=== PATIENT | male | born 1950 | race Caucasian/White ===

== ENCOUNTER 2024-03-12 16:00 | Emergency (ER) | payer BC, MEDICARE ==
[2024-03-12 16:25] LABS: BASOPHILS PERCENT AUTO 0.2 % (0.0-1.0); EOSINOPHILS PERCENT AUTO 0.1 % (1.0-3.0); HEMATOCRIT 45.3 % (40.0-54.0); HEMOGLOBIN 14.5 g/dL (14.0-18.0); LYMPHOCYTES PERCENT AUTO 4.3 % (20.5-50.1); MEAN CORPUSCULAR VOLUME 96.8 fL (80-100); MONOCYTES PERCENT AUTO 9.5 % (2-8); NEUTROPHILS PERCENT AUTO 85.9 % (42.2-75.2); PLATELET COUNT,PLT 185 10^3/uL (150-450); RED BLOOD CELL COUNT 4.68 10^6/uL (4.6-6.2); WHITE BLOOD CELL COUNT,WBC 12.1 10^3/uL (5.0-10.0)
[2024-03-12] MEDS: Albuterol/Ipratropium 3.0-0.5 MG/3 ML Neb Soln NEB ONE (16:31)
[2024-03-12] MEDS: Aspirin 81 MG Tab.Chew PO ONE (16:31)
[2024-03-12] MEDS: predniSONE 20 MG Tab PO ONE (16:42)
[2024-03-12] MEDS: Sodium Chloride 0.9% 10 ML Syringe FLUSH PRN (16:43)
[2024-03-12 16:47] LABS: A/G RATIO 1.1; ALANINE AMINOTRANSFERASE,ALT 114 U/L (16-63); ALBUMIN 3.7 g/dL (3.4-5.0); ALKALINE PHOSPHATASE 73 U/L (46-116); ANION GAP 12.1 mEq/L (7-13); ASPARTATE AMNIOTRANSFERASE,AST 530 U/L (15-37); BILIRUBIN TOTAL 0.9 mg/dL (0.2-1.0); BLOOD UREA NITROGEN,BUN 27 mg/dL (7-18); CALCIUM 11.2 mg/dL (8.5-10.1); CARBON DIOXIDE,CO2 30 mmol/L (21-32); CHLORIDE,CL 100 mmol/L (98-107); GLUCOSE RANDOM 147 mg/dL (70-99); POTASSIUM,K 5.1 mmol/L (3.5-5.1); PROTEIN TOTAL,TP 7.1 g/dL (6.4-8.2); SODIUM,NA 137 mmol/L (136-145)
[2024-03-12 16:48] LABS: B-TYPE NATRIURETIC PEPTIDE,BNP 1320 pg/ml (0-100)
[2024-03-12 17:04] LABS: EST CRCL DRUG DOSING (CG) 42.31 mL/min; ESTIMATED GFR 49 mL/min (>=60)
[2024-03-12] MEDS: Heparin Sodium 5,000 Units/ML Vial IVPUSH ONE (17:25)
[2024-03-12 17:27] LABS: INR 1.1 (0.9-1.2); PROTHROMBIN TIME 11.1 SEC (9.0-12.0); PTT,PARTIAL THROMBOPLSTIN TIME 34.8 SEC (22.0-34.0)
[2024-03-12] MEDS: Iopamidol 755 Mg/ML 100 ML Bottle IVPUSH ONE (17:27)
[2024-03-12] MEDS: Heparin Sodium/0.45% NaCl 25,000 UNITS/500 ML BAG IV SCH (17:28)
== END 2024-03-12 18:46 | disposition other institution (70) ==
LOC: DL.ED 16:00
DX: I21.4 Non-ST elevation (NSTEMI) myocardial infarction (principal); Z79.899 Other long term (current) drug therapy
CPT/HCPCS: 36415; 71046; 71275; 80053; 83880; 84484; 85025; 85610; 85730; 87428-QW; 93005; 93010; 96365; 99285; 99285-25; A9270-GY; J1644; J7512; J7620-GY; Q9967

== ENCOUNTER 2024-06-10 13:53 | Emergency (ER) | payer MEDICARE | END 2024-06-10 17:30 | LOC: DL.ED 13:53 | DX: J90 Pleural effusion, not elsewhere classified (principal); M19.90 Unspecified osteoarthritis, unspecified site; Z86.16 Personal history of COVID-19; Z95.5 Presence of coronary angioplasty implant and graft; Z79.51 Long term (current) use of inhaled steroids; Z79.01 Long term (current) use of anticoagulants; Z79.82 Long term (current) use of aspirin; Z79.899 Other long term (current) drug therapy | CPT/HCPCS: 36415; 83880; 84484; 93005; 93010; 99284; 99285 ==